=== PATIENT | male | born 1985 | race American Indian/Alaskan Native ===

== ENCOUNTER 2018-03-23 15:02 | Emergency (ER) | payer SELFPAY ==
[2018-03-23] MEDS ORDERED: NACL 0.9% 1000 ML 1,000 ML IV ONE (16:05)
[2018-03-23] MEDS ORDERED: MORPHINE IV ONE (16:05)
[2018-03-23] MEDS ORDERED: DIPRIVAN 10 MG/ML IV ONE ×2 (16:19→17:51)
[2018-03-23] MEDS ORDERED: KETALAR IV ONE ×2 (16:19→17:51)
--- NOTE | 2018-03-23 16:25 | XRay Report ---
FINAL REPORT EXAM: XR SHOULDER 2+V LT HISTORY: pain and possible dislocation after injury TECHNIQUE: 3 views of left shoulder. PRIORS: None. FINDINGS: Humeral head appears superimposed over anteroinferior glenoid fossa, with upper extremity held in abduction. No apparent fracture. AC joint maintained. Remainder of osseous and soft tissue structures grossly unremarkable. IMPRESSION: 1. Probable anteroinferior dislocation of left glenohumeral joint and luxatio erecta.
[2018-03-23] MEDS ORDERED: KETAMINE HCL IV ONE (16:34)
--- NOTE | 2018-03-23 16:34 | Emergency Department Report ---
HPI - General Chief Complaint: Extremity Injury, Upper Time Seen by Provider: 03/23/18 15:55 - HPI HPI: 32-year-old after [place] male presents to the emergency department with a complaint of a left shoulder dislocation. The patient just got into town on a plane and reached up to get his baggage in the overhead bin and his shoulder/ arm got stuck in this position and he has been having pain since. 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 He otherwise denies any past medical history. He did not take anything for her symptoms prior to presentation. ED Past Medical Hx - Past Medical History Previous Medical History?: Yes Additional medical history: previous shoulder dislocations - Surgical History Past Surgical History?: No - Social History Smoking Status: Current Every Day Smoker Substance Use Type: None ED Review of Systems ROS: Stated complaint: DISLOCATED LEFT SHOULDER Other details as noted in HPI Comment: All other systems reviewed and negative Constitutional: denies: chills, fever Eyes: denies: eye pain, eye discharge, vision change ENT: denies: ear pain, throat pain Respiratory: denies: cough, shortness of breath, wheezing Cardiovascular: denies: chest pain, palpitations Gastrointestinal: denies: abdominal pain, nausea, diarrhea Genitourinary: denies: urgency, dysuria Musculoskeletal: arthralgia. denies: back pain Skin: denies: rash, lesions Neurological: denies: headache, weakness, paresthesias Physical Exam - Physical Exam Vital Signs: Vital Signs 03/23/18 03/23/18 15:04 15:15 Temperature 99.8 F H Pulse Rate 80 62 Respiratory 18 18 Rate Blood Pressure 134/80 119/79 O2 Sat by Pulse 98 95 Oximetry Physical Exam: GENERAL: The patient is well-developed well-nourished. HENT: Normocephalic. Atraumatic. Patient has moist mucous membranes. EYES: Extraocular motions are intact. NECK: Supple. Trachea is midline. CHEST/LUNGS: Clear to auscultation. There is no respiratory distress noted. HEART/CARDIOVASCULAR: Regular. There is no tachycardia. There is no murmur. ABDOMEN: Abdomen is soft, nontender. Patient has normal bowel sounds. There is no abdominal distention. SKIN: Skin is warm and dry. NEURO: The patient is awake, alert, and oriented. The patient is cooperative. The patient has no focal neurologic deficits. The patient has normal speech. MUSCULOSKELETAL: Patient has some tenderness to palpation along the left shoulder and axilla. His left upper extremity is raised above shoulder height in abduction and appears stuck there consistent with an inferior shoulder dislocation. He has +2 over 4 radial pulse and capillary refill that is less than 2 seconds to the affected left upper extremity. ED Course Vital Signs 03/23/18 03/23/18 15:04 15:15 Temperature 99.8 F H Pulse Rate 80 62 Respiratory 18 18 Rate Blood Pressure 134/80 119/79 O2 Sat by Pulse 98 95 Oximetry - Moderate Sedation Indications: fracture/dislocation redu ASA Class: I Mallampati Airway Score: 1 Time of Last PO Intake: 10:00 Preparation: product management intern applied, pulse oximeter, capnometry used, supplemental O2 applied, suction/airway equipment at bedside, IV secured Ketamine: IV Ketamine Dose: 60 IV Propofol Dose (mgs): 80 Complications: none Patient Tolerated Procedure: well Additional Comments: The procedure lasted from 1647 until 1703 - Orthopedic Joint Reduction Joint #1 Consent Obtained: verbal consent, written consent Time Out Performed: Yes Side: left Joint Reduction Location: shoulder Analgesia: moderate sedation Shoulder Technique Used (if applicable): traction/counter-traction Technique Used: direct manipulation Post-Reduction Neuro Exam: intact Post-Reduction Vascular Exam: intact Post Reduction X-Ray Obtained: Yes Post Reduction X-Ray Results: reduced Splint Applied: Yes Patient Tolerated Procedure: well Additional Comments: The procedure lasted from 1647 until 1703 ED Medical Decision Making - Medical Decision Making The patient presented with a left inferior shoulder dislocation. He appears neurovascularly intact. X-ray confirms dislocation. At first we were going to attempt some manipulation and/or reduction with just some morphine being given. However this was not sufficient enough for the patient to relax. We then decided to do a moderate sedation. Patient received a combination of ketamine and propofol with appropriate sedation for muscle relaxation and I was able to reduce the shoulder joint using traction and some direct manipulation. The postreduction x-ray appears to show appropriate reduction of the humeral head into the glenohumeral joint. Once again the patient appears neurovascularly intact and was placed in a shoulder immobilizer. He was watched and there are no signs of any sedation or alteration in mental status. His vital signs and stable throughout his ED course. The patient will remain in a shoulder immobilizer and has been given referrals for orthopedists. He has been instructed to return to the emergency Department with any worsening of his symptoms or any acute distress. - Differential Diagnosis dislocation, fracture, subluxation, strain, sprain Critical Care Time: No Critical care attestation.: If time is entered above; I have spent that time in minutes in the direct care of this critically ill patient, excluding procedure time. ED Disposition Clinical Impression: Inferior dislocation of left shoulder Qualifiers: Encounter type: initial encounter Qualified Code(s): S43.035A - Inferior dislocation of left humerus, initial encounter Disposition: TO HOME OR SELFCARE Is pt being admited?: No Condition: Stable Instructions: Shoulder Dislocation (ED), Moderate Sedation (ED) Additional Instructions: I recommend that you stay in the shoulder immobilizer until follow-up with the orthopedist. I have given him a referral for 2 different orthopedic groups, but you are more than welcome to see him ever you choose. Return to the emergency department with any worsening of your symptoms or any acute distress. Referrals: [facility] [Provider Group] - 3-5 Days PRIMARY MD RANDALL [Primary Care Provider] - 3-5 Days FRANCIS DIA MD [Staff Physician] - 3-5 Days
[2018-03-23] MEDS ORDERED: KETALAR IV NR (17:00)
[2018-03-23 18:19] VITALS: BP 128/69
--- NOTE | 2018-03-24 12:27 | XRay Report ---
LEFT SHOULDER, ONE VIEW History: Postreduction film. Findings: This exam is just presented to me for interpretation. The dislocation of the left glenohumeral joint has been reduced since 03/23/18 at 1533 hrs. Alignment is anatomic. No obvious fracture. Impression: Anatomic alignment at the left shoulder.
== END 2018-03-23 18:19 | disposition home or self-care (01) ==
LOC: ED 15:02
DX: S43.035A Inferior dislocation of left humerus, initial encounter (principal); F17.200 Nicotine dependence, unspecified, uncomplicated; X50.1XXA Overexertion from prolonged static or awkward postures, initial encounter; Y93.89 Activity, other specified; Y92.89 Other specified places as the place of occurrence of the external cause; Y99.8 Other external cause status
CPT/HCPCS: 23650; 73020; 73030; 96374; 99284; J2270; J2704; J7030